=== PATIENT | male | born 1995 | race Caucasian/White ===

== ENCOUNTER 2021-07-27 12:56 | Emergency (ER) | payer MEDICAID, SELFPAY ==
[2021-07-27 13:04] VITALS: BP 129/82; PULSE 130; RESP 24; TEMP 36.8; O2SAT 95
--- NOTE | 2021-07-27 13:15 | DI.RAD_ITS ---
Exam(s) XR PORTABLE CHEST AP EXAM: XR PORTABLE CHEST AP CLINICAL HISTORY: Cough TECHNIQUE: 2D digital imaging was performed of the chest. One image was obtained. An AP view was ob tained. COMPARISON: No exams were available for comparison FINDINGS: MEDIASTINUM: Normal. HEART: Normal. PULMONARY VASCULATURE: Normal. LUNGS: Clear. PLEURAL SPACE: No pleural effusion or pneumothorax. BONE:Within normal limits for the patient's age. OTHER FINDINGS:Normal. IMPRESSION: No acute pulmonary findings. DATA REPOSITORY: RADIATION DOSE DELIVERED:
--- NOTE | 2021-07-27 13:21 | W.ED.GENAD ---
Discharge Plan Disposition Patient Disposition: HOME Condition: Improving Discharge Details Clinical Impression: Bronchitis Primary Care Provider: Unknown,Unknown ED Provider: Arjun Lopez Home Meds and New Rx's Prescriptions: New amoxicillin-pot clavulanate 875-125 mg tablet 1 tab PO BID 10 Days Qty: 20 RF: 0 guaifenesin [Mucinex] 600 mg tablet extended release 12hr 600 mg PO Q12H PRNQty: 10 RF: 0 Discontinued DayQuil Sinus Pressure/Pain 30-200 mg Tablet RF: 0 Discharge Instructions Instructions: Acute Bronchitis (ED) Additional Instructions: Small, frequent use of fluids to maintain hydration. Take antibiotics as prescribed until finished. I recommend you take once daily [id number] probiotic while on this medication. Your heart rate was elevated and you should avoid pseudoephedrine containing sinus medications. Medical Decision Making 26-year-old male presents from home. He has had 10 to 14 days of cough, congestion, sputum production. Seem to improve and then worsened over the past 3 to 4 days time. Associated with generalized weakness and malaise. Arrives ER afebrile but tachycardic with a pulse of 130. Oxygenating 95% on room air. Differential diagnosis includes dehydration, electrolyte abnormality, bronchitis, pneumonia or pneumonitis. Patient IV access established, given fluid bolus, referred for laboratory testing, chest x-ray, and COVID-19 screening. Patient improved following fluid bolus. Laboratories noted negative SARS-CoV-2 PCR, unremarkable chemistries, slightly elevated white blood cell count of 14. Chest x-ray without focal infiltrate. Given patient's persistent symptoms, this is consistent with bronchitis and likely a sinusitis. I will treat him with a course of Augmentin. He is stable and improved at this time. HPI General Mode of arrival: ambulatory. Date/Time Provider Initiated Documentation: 07/27/21 13:00. Limitations to Documentation: no limitations. Information obtained by: patient. History of Present Illness 26 year old M presents to the emergency department with the chief complaint of Cough for 10 days, now recurrent and worse, sputum production, described as moderate, Quality is described as dull and constant, and is localized to the chest. Patient reports no radiation. Patient started experiencing this day(s) and it has been intermittent. No relieving factors improve symptom(s), Patient notes cough, shortness of breath and weakness. Patient did receive the following treatments prior to arrival, none Related Data Home Medications Medication Instructions Recorded Confirmed amoxicillin-pot clavulanate 1 tab PO BID 10 Days #20 tab 07/27/21 guaifenesin [Mucinex] 600 mg PO Q12H PRN #10 tab 07/27/21 Previous Rx's Medication Instructions Recorded amoxicillin-pot clavulanate 1 tab PO BID 10 Days #20 tab 07/27/21 guaifenesin [Mucinex] 600 mg PO Q12H PRN #10 tab 07/27/21 Allergies Allergy/AdvReac Type Severity Reaction Status Date / Time No Known Allergies Allergy Unverified 07/27/21 13:10 General Stated Complaint: RespSymp GERMAINE: 3 Review of Systems Narrative: Cough, sinus pressure/post nasal drip. 6 systems reviewed and otherwise negative. Positive sick contacts in the home. Reports previous Covid infection. [facility] Social History Smoking/Tobacco Use Status: Never Smoking risk assessment performed?: Yes Alcohol Intake: never Substance use type: does not use Do you feel safe at home: Yes Do you feel safe in your relationship?: Yes Exam Narrative Exam Narrative: GEN: awake, alert, oriented 3. Pleasant, well groomed, interactive. HEAD: Normocephalic, atraumatic ENT: Mucous membranes dry, oropharynx unremarkable, External ear exam unremarkable EYES: PERRL, EOMI NECK: Full ROM, no ELEUTERIO, no menigismus CHEST/RESP: Nontender, clear to auscultation bilateral, no wheeze/rhonchi/rales CARDIOVASCULAR: Regular and tachycardic, no murmur, rub geneva. 2+ Rad pulse bilateral ABDOMEN: Soft, nontender, no mass. +Bowel sounds EXT: Full ROM, no edema, no rash Neuro: Grossly normal neurologic exam, conversant, interactive. Psych: Speech fluent, thoughts congruent, affect normal Course Vital Signs Vital signs: Vital Signs Temperature 36.8 C 07/27/21 13:04 Pulse 130 H 07/27/21 13:04 Respiratory Rate 24 07/27/21 13:04 Blood Pressure 129/82 07/27/21 13:04 Pulse Oximetry 95 07/27/21 13:04 Temperature 36.8 C 07/27/21 13:04 Temperature Source Temporal Artery Scan 07/27/21 13:04 Pulse 130 H 07/27/21 13:04 Respiratory Rate 24 07/27/21 13:04 Blood Pressure 129/82 07/27/21 13:04 Blood Pressure Position Sitting 07/27/21 13:04 Pulse Oximetry 95 07/27/21 13:04 Oxygen Delivery Method Room Air 07/27/21 13:04 Oxygen Flow Rate 0 07/27/21 13:04 Pain Level 7 07/27/21 13:04
[2021-07-27 13:41] LABS: Source Nasal/Nares
[2021-07-27 13:45] LABS: Abs Immature Grans 0.08 10^3/uL (0.0-0.06); Absolute Basophil Count 0.06 10^3/uL (0.0-0.2); Absolute Eosinophil Count 0.12 10^3/uL (0.0-0.7); Absolute Lymphocyte Count 1.48 10^3/uL (1.2-3.4); Absolute Monocyte Count 1.27 10^3/uL (0.1-0.8); Absolute Neutrophil Count 11.91 10^3/uL (1.2-6.7); Basophils % 0.4; Eosinophils % 0.8; HGB 15.3 g/dL (13.5-17.5); Immature Grans % 0.5; Lymphocytes % 9.9; MCH 28.1 pg (27.0-33.0); MCHC 33.3 % (32.0-36.0); MCV 84.6 fL (80-95); MPV 9.8 fL (8.0-11.0); Monocytes % 8.5; Neutrophils % 79.9; Nucleated RBC 0 %; Platelet Count 246 10^3/uL (130-400); RBC 5.44 10^6/uL (4.36-5.78); RDW 12.8 % (11.8-14.1); RDW-SD 38.9 fL; WBC 14.91 10^3/uL (4.4-10.8)
[2021-07-27] MEDS: Normal Saline 1,000 ML 1000 ML IV (13:50)
[2021-07-27 13:56] LABS: ALT 39 U/L (16-63); AST 16 U/L (15-37); Albumin 4.2 g/dL (3.4-5.0); Alkaline Phosphatase 123 U/L (46-116); Anion Gap 12.4 mmol/L (3-11); BUN 11 mg/dL (7-18); Bilirubin, Total 0.9 mg/dL (0.2-1.0); CO2 26.6 mmol/L (21.0-32.0); CREATININE 1.1 mg/dL (0.70-1.30); Calcium 9.6 mg/dL (8.5-10.1); Chloride 101 mmol/L (98-107); Glucose 108 mg/dL (74-106); Potassium 3.5 mmol/L (3.5-5.1); Sodium 140 mmol/L (136-145); Total Protein 8.3 g/dL (6.4-8.2)
[2021-07-27 14:32] LABS: COVID-19 PCR Negative (Negative)
[2021-07-27 14:55] VITALS: BP 126/54; PULSE 96; RESP 14; O2SAT 96
[2021-07-27] MEDS: Amoxicillin 875/Clav. 125 TAB PO (14:56)
== END 2021-07-27 14:57 | disposition home or self-care (01) ==
PROVIDERS: Emergency Provider Emergency Medicine
DX: J20.9 Acute bronchitis, unspecified (principal); Z20.822 Contact with and (suspected) exposure to COVID-19
CPT/HCPCS: 36415; 80053; 87635; 96360; 99284; 71045; 85025; 99283

== ENCOUNTER 2021-12-05 02:35 | Emergency (ER) | payer MEDICAID, SELFPAY ==
[2021-12-05 02:42] VITALS: BP 169/92; PULSE 89; RESP 16; TEMP 36.9; O2SAT 98
--- NOTE | 2021-12-05 02:50 | W.ED.GENAD ---
Discharge Plan Disposition Patient Disposition: HOME Condition: Good Discharge Details Clinical Impression: Abscess of nose Primary Care Provider: Unknown,Unknown ED Provider: Domingo Beebe Home Meds and New Rx's Prescriptions: New sulfamethoxazole-trimethoprim [Bactrim DS] 800-160 mg tablet 1 tab PO BID Qty: 14 0RF Continued guaifenesin [Mucinex] 600 mg tablet extended release 12hr 600 mg PO Q12H PRNQty: 10 0RF Discharge Instructions Instructions: Abscess (ED) Additional Instructions: At this time your exam shows evidence of small abscess at the edge of your nose. Thankfully it is already draining. Continue to gently apply pressure to the area for continued expulsion of purulent material. Please take the antibiotic as directed. If you notice no improvement of your symptoms, or worsening swelling drainage please return immediately for reassessment as this could reflect resistance of the bacteria to the antibiotics has been given. If you notice any worsening of your symptoms, or any new symptoms such as vomiting, diarrhea, fever, chills, shortness of breath, chest pain, numbness, weakness, or fainting , please return immediately to the emergency department for reevaluation. Please follow up with your primary care provider as soon as possible for reassessment and reevaluation. As always, it was a pleasure participating in your medical care today. Medical Decision Making 26-year-old male with no significant past medical history presents today for evaluation of left nasal abscess. Patient states that for the last few days he has had drainage from the left nare, he has had swelling and pain in that area. He denies fever or chills. Does have mild headache. He denies any cough or other complaints. Patient did have COVID 2 months ago, but has otherwise been feeling fine. Patient has been able to express notable amount of fluid from that area over the last day, but he has had persistent pain and tenderness. He denies any trauma to that area. No other complaints at this time. No other modifying factors. Physical exam demonstrates evidence of a small abscess over the patient's left external nare. No evidence of facial cellulitis otherwise. Symptoms appear clinically inconsistent with dural venous sinus thrombosis at this time. No evidence of severe cellulitis requiring IV antibiotics. With the abscess already draining, no indication for additional I&D. We will give Bactrim, dose here, small bottle to go home with, and then a prescription to fill for completed dose. We did culture the pus, and will evaluate for sensitivities. Discussed red flags which to return. I have extensively reviewed the treatment plan and discharge instructions with the patient. I have addressed all patient concerns at this time. The patient was made aware of what symptoms to monitor for that would warrant a return to the emergency department. Discussed the plan with the patient, they demonstrate verbal understanding and agreement with our assessment and plan at this time. The documentation in this chart was dictated using [employer] dictation software. Please excuse any dictation errors. HPI General Date/Time Provider Initiated Documentation: 12/05/21 02:50. HPI Narrative: 26-year-old male with no significant past medical history presents today for evaluation of left nasal abscess. Patient states that for the last few days he has had drainage from the left nare, he has had swelling and pain in that area. He denies fever or chills. Does have mild headache. He denies any cough or other complaints. Patient did have COVID 2 months ago, but has otherwise been feeling fine. Patient has been able to express notable amount of fluid from that area over the last day, but he has had persistent pain and tenderness. He denies any trauma to that area. No other complaints at this time. No other modifying factors. Related Data Home Medications Medication Instructions Recorded Confirmed guaifenesin 600 mg tablet, 600 mg PO Q12H PRN #10 tab 07/27/21 extended release 12 hr (Mucinex) sulfamethoxazole 800 1 tab PO BID #14 tab 12/05/21 mg-trimethoprim 160 mg tablet (Bactrim DS) Previous Rx's Medication Instructions Recorded guaifenesin 600 mg tablet, 600 mg PO Q12H PRN #10 tab 07/27/21 extended release 12 hr (Mucinex) sulfamethoxazole 800 1 tab PO BID #14 tab 12/05/21 mg-trimethoprim 160 mg tablet (Bactrim DS) Allergies Allergy/AdvReac Type Severity Reaction Status Date / Time No Known Allergies Allergy Unverified 07/27/21 13:10 General Stated Complaint: Cellulitis GERMAINE: 3 Review of Systems All systems reviewed & are unremarkable except as noted in HPI and below PFSH All Active Problems Bronchitis (Acute) Abscess of nose (Acute) Social History Smoking/Tobacco Use Status: Never Smoking risk assessment performed?: Yes Alcohol Intake: never Substance use type: does not use Do you feel safe at home: Yes Do you feel safe in your relationship?: Yes Exam Narrative Exam Narrative: 1.Const: Well-nourished, Well-developed, appearing stated age 2.Eyes: PERRL, no conjunctival injection, and symmetrical lids. 3.ENT: Atraumatic external nose and ears. Moist MM. Neck: Symmetric, trachea midline, No thyromegaly. Patient's left nare demonstrates a small amount of swelling over the inferior lateral aspect of the nasal ala there are 2 points of drainage, both right at the external component, and a second slightly more internal by about 7 mm. Both are actively draining at this time. No other fluctuance can be appreciated on palpation. No sign of tenderness over the nasal bridge, the eyes, or the orbits. No evidence of pre or cellulitis. 4.CVS: +S1/S2, No murmurs or gallops. Peripheral pulses 2+ and equal in all extremities. Brisk capillary refill in all extremities. 5.RESP: Unlabored respiratory effort. Clear to auscultation bilaterally. No wheezes rales or rhonchi 6.GI: Soft, Nontender/Nondistended, No hepatosplenomegaly. No guarding or rebound. 7.MSK: Normocephalic/Atraumatic, Extremities w/o deformity or ttp No cyanosis or clubbing, Normal movement of all extremities 8.Skin: Warm, Dry. No rashes or lesions. 9.Neuro: crm dynamics developer II-XII grossly intact. Sensation grossly intact, no focal neurologic deficits. 10.Psych: (AAO) x3. Appropriate mood and affect Course Vital Signs Vital signs: Vital Signs Temperature 36.9 C 12/05/21 02:42 Pulse 89 12/05/21 02:42 Respiratory Rate 16 12/05/21 02:42 Blood Pressure 169/92 H 12/05/21 02:42 Pulse Oximetry 98 12/05/21 02:42 Temperature 36.9 C 12/05/21 02:42 Temperature Source Temporal Artery Scan 12/05/21 02:42 Pulse 89 12/05/21 02:42 Respiratory Rate 16 12/05/21 02:42 Respiratory Effort 12/05/21 02:44 Blood Pressure 169/92 H 12/05/21 02:42 Blood Pressure Position Sitting 12/05/21 02:42 Pulse Oximetry 98 12/05/21 02:42 Oxygen Delivery Method Room Air 12/05/21 02:42 Oxygen Flow Rate 0 12/05/21 02:42 Pain Level 8 12/05/21 02:42
[2021-12-05] MEDS: Sulfameth/Trimeth DS TAB 1 TAB PO (02:59)
[2021-12-05] MEDS: Sulfameth/Trimeth DS, 2 TABS/BTL 1 TAB PO (02:59)
== END 2021-12-05 03:03 | disposition home or self-care (01) ==
PROVIDERS: Emergency Provider Student in an Organized Health Care Education/Training Program
DX: J34.0 Abscess, furuncle and carbuncle of nose (principal); Z86.16 Personal history of COVID-19
CPT/HCPCS: 87077; 99283; 87070; 87186

== ENCOUNTER 2021-12-05 13:51 | Emergency (ER) | payer MEDICAID, SELFPAY ==
[2021-12-05 14:03] VITALS: BP 144/102; PULSE 73; RESP 16; TEMP 36.8; O2SAT 98
--- NOTE | 2021-12-05 16:20 | ED.GENADUL_ITS ---
Discharge Plan Disposition Patient Disposition: HOME Condition: Stable Discharge Details Clinical Impression: Abscess of nose Primary Care Provider: Unknown,Unknown ED Provider: Naty Zhu Home Meds and New Rx's Prescriptions: New mupirocin 2 % ointment 1 applic topical TID Qty: 22 0RF Continued guaifenesin [Mucinex] 600 mg tablet extended release 12hr 600 mg PO Q12H PRNQty: 10 0RF sulfamethoxazole-trimethoprim [Bactrim DS] 800-160 mg tablet 1 tab PO BID Qty: 14 0RF Discharge Instructions Instructions: Abscess (ED) Additional Instructions: continue on antibiotics warm compresses apply the mupirocin 3 times a day for 7 days antibiotic will likely take 48 hours for noticable improvement pcp recheck in 72 hours early return with difficulty swallowing, fever, spread of swelling significantly, difficulty opening jaw Medical Decision Making Patient instructed to continue on Bactrim, afebrile and nontoxic Warm compresses recommended Return precautions discussed and patient expressed understanding Medical Records Medical records reviewed: Yes I reviewed the patient's medical records. Lab Data Lab results reviewed: Yes I reviewed the patient's lab results. ECG Data Prior ECG tracings: available for review HPI General Date/Time Provider Initiated Documentation: 12/05/21 13:59 . HPI Narrative: This 26-year-old gentleman presents with to his left nares. He states that he was evaluated last night in the emergency department, started on antibiotics and returns now secondary to spreading redness and worsening pain. He denies any fever or chills. He is otherwise reportedly healthy. He denies any difficulty swallowing or difficulty opening his jaw. Related Data Home Medications Medication Instructions Recorded Confirmed guaifenesin 600 mg tablet, 600 mg PO Q12H PRN #10 tab 07/27/21 extended release 12 hr (Mucinex) mupirocin 2 % topical ointment 1 applic TOPICAL TID #22 g 12/05/21 sulfamethoxazole 800 1 tab PO BID #14 tab 12/05/21 mg-trimethoprim 160 mg tablet (Bactrim DS) Previous Rx's Medication Instructions Recorded guaifenesin 600 mg tablet, 600 mg PO Q12H PRN #10 tab 07/27/21 extended release 12 hr (Mucinex) mupirocin 2 % topical ointment 1 applic TOPICAL TID #22 g 12/05/21 sulfamethoxazole 800 1 tab PO BID #14 tab 12/05/21 mg-trimethoprim 160 mg tablet (Bactrim DS) Allergies Allergy/AdvReac Type Severity Reaction Status Date / Time No Known Allergies Allergy Unverified 07/27/21 13:10 General Stated Complaint: Cellulitis GERMAINE: 4 Review of Systems All systems reviewed & are unremarkable except as noted in HPI and below PFSH All Active Problems (Updated 12/05/21 @ 15:51 by SURENDRA Magaña) Bronchitis (Acute) Abscess of nose (Acute) Social History Smoking/Tobacco Use Status: Never Smoking risk assessment performed?: Yes Alcohol Intake: never Substance use type: does not use Do you feel safe at home: Yes Do you feel safe in your relationship?: Yes Exam Const General: cooperative and comfortable Orientation: alert and oriented x3 HENMT Other: Affect noted to left nares, mild facial swelling to the maxillary region, no evidence of Ludwigs, no trismus Eyes Other: No proptosis or periorbital injection Course Vital Signs Vital signs: Vital Signs Temperature 36.8 C 12/05/21 14:03 Pulse 73 12/05/21 14:03 Respiratory Rate 16 12/05/21 14:03 Blood Pressure 144/102 H 12/05/21 14:03 Pulse Oximetry 98 12/05/21 14:03 Temperature 36.8 C 12/05/21 14:03 Temperature Source Skin 12/05/21 14:03 Pulse 73 12/05/21 14:03 Respiratory Rate 16 12/05/21 14:03 Respiratory Effort 12/05/21 14:07 Blood Pressure 144/102 H 12/05/21 14:03 Blood Pressure Position Sitting 12/05/21 14:03 Pulse Oximetry 98 12/05/21 14:03 Pain Level 8 12/05/21 14:03
== END 2021-12-05 16:20 | disposition home or self-care (01) ==
PROVIDERS: Emergency Provider Physician Assistant
DX: J34.0 Abscess, furuncle and carbuncle of nose (principal)
CPT/HCPCS: 99283

== ENCOUNTER 2023-03-31 15:22 | Emergency (ER) | payer OTHER, MEDICAID, SELFPAY ==
[2023-03-31 15:28] VITALS: BP 137/61; PULSE 90; RESP 18; TEMP 36.8; O2SAT 100
--- NOTE | 2023-03-31 15:30 | DI.CT_ITS ---
Exam(s) CT ABDOMEN PELVIS W EXAM: CT ABDOMEN PELVIS W CLINICAL HISTORY: mid and lower left abd pain. TECHNIQUE: Imaging Protocol: Axial computed tomography images with coronal and sagittal reformatted images were created and reviewed CONTRAST MATERIAL: Intravenous: Omnipaque 350 Contrast volume:100 ml Oral: yes / no COMPARISON: No exams were available for comparison FINDINGS: ABDOMEN: Lung Bases: Normal where visualized. Liver: Normal density. No measurable mass. Gallbladder and biliary tract: No radiodense calculus or dilation. Pancreas: Normal density, no abnormal calcifications or inflammatory process. Spleen: Normal. Kidneys: Normal size, contour and axis. No radiodense stones or obstructive uropathy. No suspicious m asses seen. Adrenal glands: No masses seen. Abdominal Aorta: Abdominal portion non-dilated. Soft tissues: Unremarkable. PELVIS: Bladder: No gross wall thickening. No calculi.No focal mass. Bowel: No obstruction. Diffuse colonic wall thickening. Some stranding in the adjacent fat, greate st at the cecum and ascending colon. Appendix normal. Peritoneal cavity: No ascites, collection or mesenteric inflammatory response. Bones: Prior disc fusion surgery at L4-5 with screws and disc spacer in place. Reproductive organs: Within normal limits. Lymph nodes: Multiple mildly enlarged mesenteric lymph nodes seen greatest in the right lower quadran t, consistent with reactive, inflammatory lymph nodes. Impression: Findings consistent with colitis, most severe of the cecum and ascending colon. Reactive mesenteric lymph nodes. RADIATION DOSE DELIVERED: 1,239.28mGy.cm Total DLP DATA REPOSITORY: All CT scans at this facility are submitted to the National Radiology Data Registry (NRDR) Dose Index Registry (DIR) with the [employer] ([employer]). RADIATION OPTIMIZATION: All CT scans at this facility use at least one of these dose optimization te chniques: automated exposure control; mA and/or kV adjustment per patient size (includes targeted exa ms where dose is matched to clinical indication); or iterative reconstruction.
--- NOTE | 2023-03-31 15:43 | ED.GENADUL_ITS ---
Discharge Plan Disposition Patient Disposition: Home Condition: Stable Discharge Details Clinical Impression: Abdominal pain, Bloody stools Primary Care Provider: Unknown,Unknown ED Provider: Bakari Lopes Home Meds and New Rx's Prescriptions: Continued omeprazole 20 mg capsule,delayed release(DR/EC) 20 mg PO DAILY dexamethasone 2 mg tablet 2 mg PO BID Qty: 4 0RF guaifenesin [Mucinex] 600 mg tablet extended release 12hr 600 mg PO Q12H PRNQty: 10 0RF mupirocin 2 % ointment 1 applic topical TID Qty: 22 0RF No Action sulfamethoxazole-trimethoprim [Bactrim DS] 800-160 mg tablet 1 tab PO BID Qty: 14 0RF Discharge Instructions Additional Instructions: Your blood work was reassuring and your cat scan showed non specific inflammation Follow up with your primary care provider within 1-2 weeks and discuss seeing gastroenterology IF you feel more ill, have severe worsening pain, difficulty breathing or weakness return to the emergency department Medical Decision Making 27 yo male who states for years he's had intermittent issues with periods of bloody stools and abodminal cramping, comes in with cc of 1 day of mid and lower left abdominal cramping and blood stools. Denies fevers, chills, chest pain, dyspnea, denies alcohol or drug use. No vomiting. He arrives stable and appears well speaking clearly, caox4. He has a soft nondistended abodmen and has tenderness in the llq, no guarding or rebound, no distention of the abdomen and no tenderness elsewhere. Suspect colitis vs diverticulitis vs inflammatory or irritable bowel syndrome, will proceed with cbc, cmp, lipase and ct abd/pelvis to evaluate further. labs and imaging unremarkable other than nonspecific colitis/adenitis, pt stable, no tenderness now on exam. He is stable for d/c and will f/u with his pcp and discuss GI referral, return precautions given Differential Diagnosis Differential Diagnosis: diverticulitis, colitis Imaging Data Radiologic Study: Attestation: I personally reviewed and interpreted this imaging study as follows: Imaging: CT Scan Radiologist's impression: IMPRESSION: Ileocolitis/adenitis suspected presumed infectious/inflammatory. Consider follow-up contrast enhanced CT of the abdomen and pelvis within 6 months to assess for resolution of mesenteric adenopathy Lab Data Lab results reviewed: Yes I reviewed the patient's lab results. HPI General Mode of arrival: ambulatory . Date/Time Provider Initiated Documentation: 03/31/23 15:24 . Limitations to Documentation: no limitations . Information obtained by: patient . History of Present Illness 27 year old M presents to the emergency department with the chief complaint of abdominal pain, described as moderate, Quality is described as other (cramping), and is localized to the abdomen. Patient reports no radiation. Patient started experiencing this day(s) (1) and it has been intermittent. No relieving factors improve symptom(s), No exacerbating factors reported . Patient notes other (nausea, bloody stools). Patient did receive the following treatments prior to arrival, none Related Data Home Medications Medication Instructions Recorded Confirmed guaifenesin 600 mg tablet, 600 mg PO Q12H PRN #10 tabs 07/27/21 12/05/22 extended release 12 hr (Mucinex) mupirocin 2 % topical ointment 1 applic topical TID #22 grams 12/05/21 03/31/23 sulfamethoxazole 800 1 tab PO BID #14 tabs 12/05/21 12/05/22 mg-trimethoprim 160 mg tablet (Bactrim DS) dexamethasone 2 mg tablet 2 mg PO BID #4 tabs 12/05/22 12/05/22 omeprazole 20 mg capsule,delayed 20 mg PO DAILY 12/05/22 03/31/23 release Previous Rx's Medication Instructions Recorded guaifenesin 600 mg tablet, 600 mg PO Q12H PRN #10 tabs 07/27/21 extended release 12 hr (Mucinex) mupirocin 2 % topical ointment 1 applic topical TID #22 grams 12/05/21 sulfamethoxazole 800 1 tab PO BID #14 tabs 12/05/21 mg-trimethoprim 160 mg tablet (Bactrim DS) dexamethasone 2 mg tablet 2 mg PO BID #4 tabs 12/05/22 Allergies Allergy/AdvReac Type Severity Reaction Status Date / Time No Known Allergies Allergy Unverified 12/05/22 09:24 General Stated Complaint: GI Bleed GERMAINE: 3 Review of Systems All systems reviewed & are unremarkable except as noted in HPI and below Constitutional Constitutional: Denies chills, Denies fever(s) and Denies weakness Cardiovascular Cardiovascular: Denies chest pain and Denies dyspnea Respiratory Respiratory: Denies cough and Denies dyspnea Gastrointestinal Gastrointestinal: Denies vomiting Genitourinary Genitourinary: Denies dysuria Integumentary/Breasts Skin/Breast: Denies rash Neurologic Neurologic: Denies weakness PFSH All Active Problems (Updated 03/31/23 @ 17:40 by Bakari Lopes MD) Abdominal pain (Acute) Bloody stools (Acute) Bronchitis (Acute) Social History Smoking/Tobacco Use Status: Never Smoking risk assessment performed?: Yes Alcohol Intake: never Drug use: Occasionally Substance use type: marijuana Do you feel safe at home: Yes Do you feel safe in your relationship?: Yes Exam Const General: no acute distress Orientation: alert HENMT Head: normal to inspection Ears: external ears normal General nose exam: external nose normal Mouth: moist mucous membranes Eyes General: appearance normal, both eyes and all related structures Neck Neck: normal visual inspection Resp Effort & Inspection: normal respiratory effort and able to speak in complete sentences Cardio Rate: regular rate GI Palpation: soft, not firm, no guarding and tender Skin General skin exam: no rashes or lesions noted Neuro General: patient alert and patient oriented x3 Extrem General: normal to inspection Psych Mental Status: mental status grossly normal Course Vital Signs Vital signs: Vital Signs Temperature 36.8 C 03/31/23 15:28 Pulse 90 03/31/23 15:28 Respiratory Rate 18 03/31/23 15:28 Blood Pressure 137/61 03/31/23 15:28 Pulse Oximetry 100 03/31/23 15:28 Temperature 36.8 C 03/31/23 15:28 Temperature Source Oral 03/31/23 15:28 Pulse 90 03/31/23 15:28 Respiratory Rate 18 03/31/23 15:28 Respiratory Effort Normal, Non-Labored 03/31/23 15:32 Blood Pressure 137/61 03/31/23 15:28 Pulse Oximetry 100 03/31/23 15:28 Oxygen Delivery Method Room Air 03/31/23 15:28 Oxygen Flow Rate 0 03/31/23 15:28 Pain Level 5 03/31/23 15:28
[2023-03-31 16:06] LABS: Abs Immature Grans 0.03 10^3/uL (0.0-0.06); Absolute Basophil Count 0.04 10^3/uL (0.0-0.2); Absolute Eosinophil Count 0.02 10^3/uL (0.0-0.7); Absolute Lymphocyte Count 2.13 10^3/uL (1.2-3.4); Absolute Monocyte Count 0.87 10^3/uL (0.1-0.8); Basophils % 0.3; Eosinophils % 0.2; HCT 40.2 % (40.0-50.0); HGB 13.6 g/dL (13.5-17.5); Immature Grans % 0.2; Lymphocytes % 17.2; MCH 27.6 pg (27.0-33.0); MCHC 33.8 % (32.0-36.0); MCV 82 fL (80-95); MPV 9.5 fL (8.0-11.0); Neutrophils % 75.1; Platelet Count 209 10^3/uL (130-400); RBC 4.92 10^6/uL (4.36-5.78); RDW 14.3 % (11.8-14.1); RDW-SD 42.6 fL; WBC 12.36 10^3/uL (4.4-10.8)
[2023-03-31 16:07] LABS: Absolute Neutrophil Count 9.28 10^3/uL (1.2-6.7)
[2023-03-31 16:22] LABS: ALT 31 U/L (16-63); AST 28 U/L (15-37); Albumin 4.2 g/dL (3.4-5.0); Alkaline Phosphatase 92 U/L (46-116); Anion Gap 11.8 mmol/L (3-11); BUN 11 mg/dL (7-18); Bilirubin, Total 0.6 mg/dL (0.2-1.0); CO2 25.2 mmol/L (21.0-32.0); CREATININE 1.1 mg/dL (0.70-1.30); Calcium 8.9 mg/dL (8.5-10.1); Chloride 103 mmol/L (98-107); Estimated GFR 93.19 (mL/min/1.73m2); Glucose 91 mg/dL (74-106); Lipase 11 U/L (16-77); Magnesium 1.7 mg/dL (1.8-2.4); Potassium 3.7 mmol/L (3.5-5.1); Sodium 140 mmol/L (136-145); Total Protein 7.6 g/dL (6.4-8.2)
[2023-03-31 16:37] LABS: Bilirubin Negative (Negative); Blood Negative (Negative); Clarity Clear (Clear); Glucose Negative (Negative); Ketones 15 mg/dL (Negative); Leukocyte Esterase Negative (Negative); Nitrite Negative (Negative); Specific Gravity 1.025 (1.005-1.025); Urobilinogen 0.2 mg/dL (Up to 0.2); pH 5.5 (5-8)
[2023-03-31 16:50] LABS: Bacteria Negative HPF (Negative); C & S Indicated? No; Casts 0-2 Hyaline LPF (Negative); Crystals Negative HPF (Negative); Epithelial Cells Rare HPF (Negative); Mucus Moderate (Negative); RBC Negative HPF (0-2); WBC Negative HPF (0-5)
[2023-03-31] MEDS: Normal Saline Flush 10 ML SYR IVP (17:04)
[2023-03-31] MEDS: Normal Saline - Diluent 50 ML VIAL IJ (17:05)
[2023-03-31] MEDS: Omnipaque 350 MG/ML 100 ML BTL IJ (17:06)
--- NOTE | 2023-03-31 17:32 | DI.VRAD_ITS ---
PROCEDURE INFORMATION: Exam: CT Abdomen And Pelvis With Contrast Exam date and time: 03/31/2023 4:33 PM Age: 27 years old Clinical indication: Other: Mid and lower left abd pain; Prior surgery; Surgery date: 6+ months; Surgery type: Back fusion surgery-2018 TECHNIQUE: Imaging protocol: Computed tomography of the abdomen and pelvis with contrast. Radiation optimization: All CT scans at this facility use at least one of these dose optimization techniques: automated exposure control; mA and/or kV adjustment per patient size (includes targeted exams where dose is matched to clinical indication); or iterative reconstruction. Contrast material: OMNIPAQUE 350; Contrast volume: 100 ml; Contrast route: INTRAVENOUS (IV); COMPARISON: CR XR PORTABLE CHEST AP 07/27/2021 1:43 PM FINDINGS: Liver: Normal. No mass. Gallbladder and bile ducts: Normal. No calcified stones. No ductal dilation. Pancreas: Normal. No ductal dilation. Spleen: Normal. No splenomegaly. Adrenal glands: Normal. No mass. Kidneys and ureters: Normal. No hydronephrosis. Stomach and bowel: Abnormal ascending and transverse colonic wall thickening. Question mild thickening of the distal small bowel No obstruction. Appendix: No evidence of appendicitis. Intraperitoneal space: Unremarkable. No free air. No significant fluid collection. Vasculature: Unremarkable. No abdominal aortic aneurysm. Lymph nodes: Enlarged mesenteric lymph nodes. Urinary bladder: Unremarkable as visualized. Reproductive: Unremarkable as visualized. Bones/joints: Postsurgical changes in the L4 and L5 vertebral bodies No acute fracture. Soft tissues: Unremarkable. IMPRESSION: Ileocolitis/adenitis suspected presumed infectious/inflammatory. Consider follow-up contrast enhanced CT of the abdomen and pelvis within 6 months to assess for resolution of mesenteric adenopathy Dictated and Authenticated by: Joo Mendez MD. Ordering:PEDRO Villegas MD
== END 2023-03-31 17:52 | disposition home or self-care (01) ==
PROVIDERS: Emergency Provider Emergency Medicine
DX: K62.5 Hemorrhage of anus and rectum (principal); R10.30 Lower abdominal pain, unspecified; K52.9 Noninfective gastroenteritis and colitis, unspecified
CPT/HCPCS: 80053; 83690; 99285; 74177; 81003; 81015; 83735; 85025; 99283; J3490